=== PATIENT | female | born 1945 | race Caucasian/White ===

== ENCOUNTER → 2017-03-28 | Outpatient (CLI) | payer MEDICARE ==
[~2017-03-28] MED LIST: ACET-168 PO; ACET325T38 PO; AMLO5TAB2 PO; ASCO100083 PO; ASP81TEC PO; ASPI-86 PO; ASPIRIN; CALC-149 PO; CHOL100011 PO; CHOL10003 PO; CHOL200018 PO; CHOL200035 PO; CITRACAL PO; CLOP75TA PO; CLPD75T PO; CYAN10006 PO; CYAN25003 SL; CYAN500T2 PO; FISH1200 PO; FOLI0.4T2 PO; FOLIC ACID PO; GARL400T13 PO; HCT25T; HCT25T PO; HTP 100 MG PO; ISOS30TA74 PO; LISI20TA PO; MAGN400T6 PO; MECL-105 PO; METO100T5; METO100T5 PO; MTP100TCR PO; MULT-608; MULT-974 PO; MULT1CAP27 PO; NFAMINITAB PO; NTR.4SL SL; OMG1KC; PANT20TA PO; POTA10CA43 PO; POTA10TA36 PO; POTASSIUM; PRAV10TA PO; PREN1TAB39 PO; PYRI100T2 PO; RMP5C PO; ROSU10TA12 PO; UBID300C PO; VIT1CAPS5 PO; VITAMIN B 6 PO; VITAMIN C PO; VITAMINE E PO; ZINC50TA49 PO; [UNRECOGNIZED DRUG - OTHER] PO
== END ==
LOC: CARD 08:59
PROVIDERS: ATTEND Internal Medicine Cardiovascular Disease
DX: I25.10 Atherosclerotic heart disease of native coronary artery without angina pectoris (principal); R07.9 Chest pain, unspecified; E78.2 Mixed hyperlipidemia; I10 Essential (primary) hypertension; R06.02 Shortness of breath
CPT/HCPCS: 93306

== ENCOUNTER → 2017-04-11 | Outpatient (CLI) | payer MEDICARE ==
[~2017-04-11] MED LIST changes: +REGADENOSON 0.4 MG/5 ML SYR (LEXISCAN) IV ONE
[2017-04-11] MEDS: CATHETER FLUSH 10 ML SYR IV PRN ×2 (07:52→09:25)
[2017-04-11 09:18] VITALS: BP 136/69
--- NOTE | 2017-04-11 11:49 | STRESS TEST ---
DATE OF SERVICE: 04/11/2017 LEXISCAN MYOVIEW STRESS TEST REPORT REFERRING PHYSICIAN: Dr. Souza. Baseline heart rate is 56. Baseline blood pressure is 136/69. Baseline EKG is sinus rhythm with no ischemic changes. In summary, the patient was injected with 10.91 mCi of technetium-99 Myoview and the resting images were obtained. Then, the patient received 0.4 mg of Lexiscan followed by 30.2 mCi of technetium-99 Myoview. Throughout the test, there were no EKG changes. The resting and stress images were reviewed and compared in the short axis, horizontal long axis, and vertical long axis views. Review of the images showed good radiotracer uptake with no significant ischemia or infarction. SSS is 1, SDS 1, TID value 0.99. On the gated images, the left ventricle appeared to be normal size with normal contractility. Calculated ejection fraction is 71%. CONCLUSION: 1. The patient tolerated Lexiscan well. 2. No ischemia or infarction on SPECT images. 3. Normal left ventricular size with normal contractility. Calculated ejection fraction is 71%. Job ID: [id number] DocumentID: [id number] Dictated Date: 04/11/2017 11:14:00 Mill Operator Head Date: 04/11/2017 11:34:17 Dictated By: MIGUEL PAYNE MD
== END ==
LOC: CARD 07:33
PROVIDERS: ATTEND Internal Medicine Cardiovascular Disease
DX: I25.10 Atherosclerotic heart disease of native coronary artery without angina pectoris (principal); R07.9 Chest pain, unspecified; R78.2 Finding of cocaine in blood; I10 Essential (primary) hypertension; R06.02 Shortness of breath
CPT/HCPCS: 78452; 93017

== ENCOUNTER → 2019-01-31 | Outpatient (CLI) | payer MEDICARE ==
[~2019-01-31] VITALS: Ht 160 cm; Wt 72.1 kg
[~2019-01-31] MED LIST changes: +CATHETER FLUSH 10 ML SYR IV PRN
[2019-01-31 09:19] VITALS: BP 141/69
[2019-01-31 09:23] VITALS: BP 158/85
--- NOTE | 2019-02-01 09:20 | STRESS TEST ---
DATE OF SERVICE: 01/31/2019 LEXISCAN MYOVIEW STRESS TEST REPORT REFERRING PHYSICIAN: Dr. Souza. Baseline heart rate is 60. Baseline blood pressure 141/69. Baseline EKG is sinus rhythm with no ischemic changes. In summary, the patient was injected with 10.55 mCi of technetium-99 Myoview and the resting images were obtained. Then, the patient received 0.4 mg of Lexiscan, followed by 31.4 mCi of technetium-99 Myoview. Throughout the test, there were no EKG changes. The resting and stress images were reviewed and compared in the short axis, horizontal long axis, and vertical long axis views. Review of the images showed breast attenuation with good radiotracer uptake, no significant ischemia or infarction was seen. SSS is 3, SDS 3, TID value 1.09. On the gated images, the left ventricle appeared to be normal size with normal contractility. Calculated ejection fraction 74%. IN CONCLUSION: 1. The patient tolerated Lexiscan well. 2. Breast attenuation with no significant ischemia or infarction on SPECT images. 3. Normal left ventricular size with normal contractility. Calculated ejection fraction 74%. Job ID: [id number] DocumentID: [id number] Dictated Date: 02/01/2019 08:23:14 Financial Consultant Date: 02/01/2019 09:20:11 Dictated By: MIGUEL PAYNE MD
== END ==
LOC: CARD 07:21
PROVIDERS: ATTEND Physician Assistant
DX: F41.9 Anxiety disorder, unspecified (principal); I65.29 Occlusion and stenosis of unspecified carotid artery; I25.10 Atherosclerotic heart disease of native coronary artery without angina pectoris; E11.9 Type 2 diabetes mellitus without complications
CPT/HCPCS: 78452; 93017

== ENCOUNTER → 2020-12-03 | Outpatient (CLI) | payer MEDICARE ==
[~2020-12-03] VITALS: Ht 157 cm; Wt 81.0 kg
[2020-12-03 13:42] VITALS: BP 205/95
--- NOTE | 2020-12-03 16:47 | Cardiology Stress Test Report ---
Stress Test Report Date of Procedure/Referring: Date of Procedure: Dec 03, 2020 PCP Miguel Ramirez MD Admitting Physician Scott Souza DO Indications: HTN Baseline Heart Rate: 66 Baseline Blood Pressure: Blood Pressure Systolic: 205 Blood Pressure Diastolic: 95 Baseline Vitals Vital Signs Date Time Temp Pulse Resp B/P (MAP) Pulse Ox O2 Delivery O2 Flow Rate FiO2 12/03/20 13:42 66 205/95 (131) 95 Baseline EKG: Baseline EKG: NSR Summary After explaining the procedure to the patient, she signed a consent and then brought to the stress nuclear laboratory. Patient received 0.4 mg Lexiscan for stress test, ECG, heart rate and blood pressure were monitored continuously. Resting and stress dose of radio tracer were injected, imaging was acquired and reviewed in short axis, horizontal long axis and vertical long axis views. TID: 1.04 SSS: 1 SDS: 1 EF: 72 1. Patient tolerated Lexiscan well 2. No significant ischemia or infarction on SPECT images 3. Normal left ventricular size, EF 72% MIGUEL RAMIREZ MD Dec 03, 2020 16:47
== END ==
LOC: CARD 11:00
PROVIDERS: ATTEND Internal Medicine Cardiovascular Disease
DX: I34.0 Nonrheumatic mitral (valve) insufficiency (principal); I10 Essential (primary) hypertension
CPT/HCPCS: 78452; 93017; 93306; A9502